=== PATIENT | male | born 1955 | race Caucasian/White ===

== ENCOUNTER → 2025-06-05 08:22 | Outpatient (CLI) | payer MEDICARE, SELFPAY ==
[2025-06-05 09:00] LABS: Add Manual Diff / Slide Review NO; Hematocrit 38.6 % (41-53); Hemoglobin 12.8 g/dL (13.5-17.5); Lymphocytes Absolute Auto 1200 /uL (1100-4500); Mean Corpuscular HGB Conc 33.3 % (30-36); Mean Corpuscular Hemoglobin 29.4 PG (26-34); Mean Corpuscular Volume 88.3 fL (80-100); Platelet Count 114 X10^3/uL (150-400)
[2025-06-05 09:24] LABS: Alanine Aminotransferase 18 IU/L (<50); Albumin 4.1 g/dL (3.5-5.0); Albumin Globulin Ratio 2.1 (1.0-2.8); Alkaline Phosphatase 68 U/L (38-126); Blood Urea Nitrogen 18 mg/dL (9-20); Calcium 9.0 mg/dL (8.4-10.2); Carbon Dioxide 31 mmol/L (22-32); Chloride 103 mmol/L (98-107); Cholesterol 212 mg/dL (140-199); Estimated Glomerular Filt Rate > 60 mL/min (>60); Globulin 2.0 g/dL (1.7-4.1); Glucose 93 mg/dL (70-99); HDL Cholesterol 44 mg/dL (40-60); HEMOLYSIS < 15 (0-50); Potassium 4.3 mmol/L (3.4-5.1); Sodium 139 mmol/L (137-145); Total Protein 6.1 g/dL (6.3-8.2); Triglycerides 153 mg/dL (35-150)
[2025-06-05 09:55] LABS: Prostate Specific Antigen 1.77 ng/mL (0.10-4.00)
== END ==
PROVIDERS: Family Provider Family Medicine; PCP Family Medicine; Referring Provider Family Medicine; Visit Provider Family Medicine
DX: E78.5 Hyperlipidemia, unspecified (principal)
CPT/HCPCS: 36415; 80053; 80061; 84153; 85025

== ENCOUNTER → 2025-07-03 07:04 | Outpatient (CLI) | payer MEDICARE, SELFPAY ==
--- NOTE | 2025-07-03 07:05 | DI.US.S_ITS ---
PROCEDURE: US ABD AORTA ANEURYSM SCREEN INDICATIONS: HISTORY OF SMOKING TECHNIQUE: Real time scanning was performed of the aorta and iliac arteries, with image documentation. COMPARISON: None. FINDINGS: Aorta: Proximal aortic diameter measures 2.6 cm. Mid-aorta measures 2.4 cm. Distal aortic diameter is 2.1 cm. Iliac arteries: Right common iliac artery measures 1.6 cm. Left common iliac artery measures 1.6 cm. IMPRESSION: Ectatic suprarenal aorta. Five year follow-up is recommended per consensus guidelines. Dictated by: Sam Garcia M.D. on 07/03/2025 at 10:57 Approved by: Sam Garcia M.D. on 07/03/2025 at 10:57
--- NOTE | 2025-07-03 07:05 | DI.MRI.S_ITS ---
PROCEDURE: MR HEAD/BRAIN WO CON INDICATIONS: aphasia, balance problems, memory changes TECHNIQUE: Non-contrast axial T1 spin echo, axial T2 fast spin echo, sagittal and axial FLAIR, coronal T2 fast spin echo, axial gradient echo, axial diffusion and ADC through the brain. COMPARISON: None. FINDINGS: Image quality: Excellent. CSF spaces: Ventricles appear symmetric in size and shape. Basal cisterns are patent. No extra-axial fluid collections. Brain: No intracranial bleeds or mass effects. There is cerebral volume loss for age. There are periventricular and deep white matter chronic small vessel ischemic changes. Brainstem appears normal. Diffusion-weighted images show no acute infarct. No chronic ischemic insults. Normal intravascular flow voids are present. In this patient with this given history, scrutiny is given to cerebellopontine angle cisterns and to the internal auditory canals. To the limits of this standard protocol study, no masses can be seen within these regions. Skull and face: Calvarial bone marrow is normal in signal. Orbits are normal. Note is made of bilateral lens replacements. Sinuses: Scattered areas of minimal to mild mucosal thickening can be seen within the paranasal sinuses. No significant abnormal mastoid air cell fluid can be seen. IMPRESSION: No imaging explanation is found for this patient's presenting symptoms. Note is made of age-appropriate brain parenchymal volume loss and chronic small vessel ischemic changes. To the limits of this noncontrast study, no findings of intracranial masses or mass effect can be seen. Dictated by: Stanley Shanks M.D. on 07/03/2025 at 10:29 Approved by: Stanley Shanks M.D. on 07/03/2025 at 10:32
== END ==
LOC: MRI 07:05
PROVIDERS: PCP Family Medicine; Referring Provider Family Medicine; Visit Provider Family Medicine
DX: R26.89 Other abnormalities of gait and mobility (principal); R41.3 Other amnesia; R47.01 Aphasia; Z87.891 Personal history of nicotine dependence; I77.811 Abdominal aortic ectasia; Z96.1 Presence of intraocular lens
CPT/HCPCS: 70551; 76706

== ENCOUNTER → 2025-09-25 11:17 | Outpatient (CLI) | payer MEDICARE, SELFPAY ==
[2025-09-25 12:18] LABS: Add Manual Diff / Slide Review NO; Hematocrit 39.0 % (41-53); Hemoglobin 13.1 g/dL (13.5-17.5); Lymphocytes Absolute Auto 1200 /uL (1100-4500); Mean Corpuscular HGB Conc 33.6 % (30-36); Mean Corpuscular Hemoglobin 29.5 PG (26-34); Mean Corpuscular Volume 87.8 fL (80-100); Platelet Count 125 X10^3/uL (150-400)
[2025-09-25 12:43] LABS: Iron 76 ug/dL (49-181)
[2025-09-25 13:24] LABS: Ferritin 28 ng/mL (18-464)
[2025-09-25 13:51] LABS: Folate > 20.0 ng/mL (2.76-20.0); Vitamin B12 697 pg/mL (239-931)
== END ==
PROVIDERS: PCP Family Medicine; Referring Provider Family Medicine; Visit Provider Family Medicine
DX: D64.9 Anemia, unspecified (principal); E78.5 Hyperlipidemia, unspecified; N40.1 Benign prostatic hyperplasia with lower urinary tract symptoms
CPT/HCPCS: 36415; 82607; 82728; 82746; 83540; 85025

== ENCOUNTER 2025-10-01 09:00 | Outpatient (RCR) | payer MEDICARE, SELFPAY ==
--- NOTE | 2025-06-05 20:41 | PT.OIE ---
Current Diagnoses Muscle spasm of back (06/05/25) Past Medical History (Last Updated 05/24/25 @ 20:37 by Naa Garcia) Anxiety Arthritis Back spasm Balance problem BPH (benign prostatic hyperplasia) Depression Expressive aphasia Hearing decreased History of tobacco abuse HLD (hyperlipidemia) Low testosterone MDD (major depressive disorder), recurrent episode Memory changes Sleep apnea Past Surgical History (Last Updated 05/24/25 @ 20:37 by Naa Garcia) Anesthesia History of Achilles tendon repair (~2015) History of carpal tunnel release History of hand surgery (~2023) History of knee replacement (~2022) History of shoulder surgery (~2018) Visit Care Team Role Provider Type Marisa Hermosillo MD Attending Provider Physician Family Provider Primary Care Provider Referring Provider Specialty: Family Practice CHIEF DEPUTY CLERK/BAILIFF Address: [address] [place] [address], [facility] Email: [email or web address] Physical Therapy Initial Evaluation PT-OP-A Visit Information Start: 06/05/25 11:34 Freq: Status: Active Protocol: Document 06/05/25 11:35 PRODUCTION COST ESTIMATOR (Rec: 06/05/25 12:45 PRODUCTION COST ESTIMATOR Laptop) Out-Patient Physical Therapy Visit Information Visit Information Visit Type Initial Evaluation Visit Start Time 11:37 Visit Stop Time 12:25 Visit Number 1 Number of DIETETIC AIDE Visits 0 Evaluation Information Evaluation Date 06/05/25 PT-OP-B Current Condition Start: 06/05/25 11:34 Freq: Status: Active Protocol: Document 06/05/25 11:35 PRODUCTION COST ESTIMATOR (Rec: 06/05/25 12:45 PRODUCTION COST ESTIMATOR Laptop) Current Condition History of Current Condition Onset Date shoulder->1 year ago, back-5-6 months Current Complaints L shoulder pain, R back pain/spasms History of Current Pt reports over a year ago he was lifting 3 gallon jugs Condition and cat was trying to get out of door at same time while he was twisting to prevent escape and tweaked his L shoulder, since then it has been painful to lift all the way over head. Pt also reports he has spasms on R side along spine from shoulder blade to where kidneys are. Pt reports he plays guitar and has been since he was a kid but has been playing a lot more since sn[facility] in 2019, R hand dominant, and feels like this may be the cause of R sided back pain. Does not feel limited in any activity but pain comes on unexpectedly and causes pain for 5-10 mins and makes it hard to sleep. Treatment Goals Patient/Caregiver To not have pain Goals PT-OP-C Subjective Start: 06/05/25 11:34 Freq: Status: Active Protocol: Document 06/05/25 11:35 PRODUCTION COST ESTIMATOR (Rec: 06/05/25 12:45 PRODUCTION COST ESTIMATOR Laptop) Patient Questionnaires Oswestry Low Back Index Oswestry Score 6/50, 12% impaired Oswestry Impairment 1 to 19% Impaired (Score 1-19) PT-OP-F Manual Assessment Start: 06/05/25 11:34 Freq: Status: Active Protocol: Document 06/05/25 11:35 PRODUCTION COST ESTIMATOR (Rec: 06/05/25 12:45 PRODUCTION COST ESTIMATOR Laptop) Manual Assessments Other Manual Assessments Other Manual decreased soft tissue mobility to B upper traps, L Assessments rhomboids, R cervical and thoracic paraspinals, B pecs PT-OP-J Posture/Palpation/Skin Start: 06/05/25 11:34 Freq: Status: Active Protocol: Document 06/05/25 11:35 PRODUCTION COST ESTIMATOR (Rec: 06/05/25 12:45 PRODUCTION COST ESTIMATOR Laptop) Posture Evaluation Comments Posture Comments Winging of B shoulders L>R, B scapular abd, B forward rounded shoulders PT-OP-K Range of Motion Start: 06/05/25 11:34 Freq: Status: Active Protocol: Document 06/05/25 11:35 PRODUCTION COST ESTIMATOR (Rec: 06/05/25 12:45 PRODUCTION COST ESTIMATOR Laptop) Cervical Spine Range of Motion Cervical Spine Active Testing Position Standing Flexion 55 Extension 40 Rotation Left 40 Rotation Right 45 Lateral Flexion Left 35 Lateral Flexion 30 Right ROM Limitations Soft Tissue Tightness Comments 2/10 pain with ext at base of neck Shoulder Goniometric Range of Motion Shoulder L Shoulder ROM WFL No Testing Position Standing Flexion 85 Extension 60 Abduction 128 External Rotation at 84 90 degrees Abduction External Rotation at 56 0 degrees Abduction Internal Rotation T4 Behind Back (text) Comments flex pain free 0-85 degrees, very painful 85-115 degrees, painful ER at 90 degrees, pain free ER at 0 degrees R Testing Position Standing Flexion 145 Extension 60 Abduction 143 External Rotation at 104 90 degrees Abduction External Rotation at 75 0 degrees Abduction Internal Rotation T10 Behind Back (text) Comments flexion pain free but feels on verge of back spasm, increased thoracic ext PT-OP-M Strength Start: 06/05/25 11:34 Freq: Status: Active Protocol: Document 06/05/25 11:35 PRODUCTION COST ESTIMATOR (Rec: 06/05/25 12:45 PRODUCTION COST ESTIMATOR Laptop) Shoulder Strength Shoulder Manual Muscle Testing L Flexion 4- Good- Extension 5 Normal Abduction (C5) 4+ Good+ Adduction 4+ Good+ External Rotation 4 Good Internal Rotation 4+ Good+ R Flexion 4+ Good+ Extension 5 Normal Abduction (C5) 4 Good Adduction 5 Normal External Rotation 5 Normal Internal Rotation 5 Normal PT-OP-Q Treatments Start: 06/05/25 11:34 Freq: Status: Active Protocol: Document 06/05/25 11:35 PRODUCTION COST ESTIMATOR (Rec: 06/05/25 12:45 PRODUCTION COST ESTIMATOR Laptop) Therapeutic Exercises Sitting Exercises Scap retract Side bilateral Reps/Minutes x10 Comments Added to HEP with HO Levator scap stretch Side bilateral Reps/Minutes 1 min each Comments Added to HEP with HO UT stretch Side bilateral Reps/Minutes 1 min each Comments Added to HEP with HO PT-OP-T Assessment and Plan Start: 06/05/25 11:34 Freq: Status: Active Protocol: Document 06/05/25 11:35 PRODUCTION COST ESTIMATOR (Rec: 06/05/25 12:45 PRODUCTION COST ESTIMATOR Laptop) Physical Therapy Assessment Rehab Potential Rehabilitation Excellent Potential Evaluation Complexity Number of Personal 1-2 Factors/ Comorbidities Number of Body 3 Systems Impaired Clinical Stable Presentation at Evaluation Impairments Impairments Functional Activities,Pain,Posture,ROM,Soft Tissue Mobility,Strength Goals 3 Impairment B shoulder strength Assisted Goal (LTG) Pt will improve B shoulder strength to at least 4+/5 in all muscle groups in order to improve function. LTG Duration 12 weeks 2 Impairment Shoulder AROM Impairment Eval: L shoulder flex 85, abd 128 R shoulder 145, abd 143 Instructional Manager Goal (LTG) Pt will improve L shoulder AROM flex and abd to at least 145 degrees without pain to improve function. LTG Duration 12 weeks 1 Impairment Cervical AROM Impairment Eval: lateral flexion L 35, R 30 Instructional Manager Goal (LTG) Pt will improve B cervical lateral flexion to 45 degrees in order to improve pain and function. LTG Duration 12 weeks Assessment Summary Assessment Pt presents with L shoulder pain and R thoracic pain, found to have impaired posture with decreased B scapular strength, decreased soft tissue mobility to B pecs, B upper traps, R cervical and thoracic paraspinals, significantly decreased B cervical lateral flexion, decreased L shoulder AROM in flexion, abduction, ER, and R IR, and decreased strength to L shoulder flexion, ER, and R abduction. Pt will highly benefit from skilled PT intervention to address impairments and improve function. Physical Therapy Plan Frequency and Duration Frequency of 1-2x/wk Treatment Duration of 12 treatment (weeks) Plan of Care Start 06/05/25 Date Plan of Care End 08/28/25 Date Therapeutic Interventions Therapeutic Home Exercise Program,Joint Mobilizations,Manual Interventions Therapy,Neuromuscular Re-education,Soft Tissue Mobilization,Taping,Therapeutic Activities,Therapeutic Exercises Modalities Cold Pack/Ice Massage,Hot Packs,Iontophoresis, Ultrasound Next Visit Focus/Plan Next Note Type Treatment Note Next Visit Plan STM to B cervical and thoracic muscles, L shoulder AROM exercises with posture training, B scapular exercises
--- NOTE | 2025-06-05 20:42 | PT.OPPOC ---
Physical, Occupational & Speech Therapy At [facility] Current Diagnoses Muscle spasm of back (06/05/25) Visit Care Team Role Provider Type Marisa Hermosillo MD Attending Provider Physician Family Provider Primary Care Provider Referring Provider Specialty: Family Practice FACETOR Address: [facility] [place], [address] Email: [email or web address] Plan Of Care PT-OP-B Current Condition Start: 06/05/25 11:34 Freq: Status: Active Protocol: Document 06/05/25 11:35 SOLAR SALES AMBASSADOR (Rec: 06/05/25 12:45 SOLAR SALES AMBASSADOR Laptop) Current Condition History of Current Condition Onset Date shoulder->1 year ago, back-5-6 months Current Complaints L shoulder pain, R back pain/spasms History of Current Pt reports over a year ago he was lifting 3 gallon jugs Condition and cat was trying to get out of door at same time while he was twisting to prevent escape and tweaked his L shoulder, since then it has been painful to lift all the way over head. Pt also reports he has spasms on R side along spine from shoulder blade to where kidneys are. Pt reports he plays guitar and has been since he was a kid but has been playing a lot more since jail in 2019, R hand dominant, and feels like this may be the cause of R sided back pain. Does not feel limited in any activity but pain comes on unexpectedly and causes pain for 5-10 mins and makes it hard to sleep. Treatment Goals Patient/Caregiver To not have pain Goals PT-OP-T Assessment and Plan Start: 06/05/25 11:34 Freq: Status: Active Protocol: Document 06/05/25 11:35 SOLAR SALES AMBASSADOR (Rec: 06/05/25 12:45 SOLAR SALES AMBASSADOR Laptop) Physical Therapy Assessment Rehab Potential Rehabilitation Excellent Potential Evaluation Complexity Number of Personal 1-2 Factors/ Comorbidities Number of Body 3 Systems Impaired Clinical Stable Presentation at Evaluation Impairments Impairments Functional Activities,Pain,Posture,ROM,Soft Tissue Mobility,Strength Goals 3 Impairment B shoulder strength Fingernail Technician Goal (LTG) Pt will improve B shoulder strength to at least 4+/5 in all muscle groups in order to improve function. LTG Duration 12 weeks 2 Impairment Shoulder AROM Impairment Eval: L shoulder flex 85, abd 128 R shoulder 145, abd 143 Fingernail Technician Goal (LTG) Pt will improve L shoulder AROM flex and abd to at least 145 degrees without pain to improve function. LTG Duration 12 weeks 1 Impairment Cervical AROM Impairment Eval: lateral flexion L 35, R 30 Fingernail Technician Goal (LTG) Pt will improve B cervical lateral flexion to 45 degrees in order to improve pain and function. LTG Duration 12 weeks Assessment Summary Assessment Pt presents with L shoulder pain and R thoracic pain, found to have impaired posture with decreased B scapular strength, decreased soft tissue mobility to B pecs, B upper traps, R cervical and thoracic paraspinals, significantly decreased B cervical lateral flexion, decreased L shoulder AROM in flexion, abduction, ER, and R IR, and decreased strength to L shoulder flexion, ER, and R abduction. Pt will highly benefit from skilled PT intervention to address impairments and improve function. Physical Therapy Plan Frequency and Duration Frequency of 1-2x/wk Treatment Duration of 12 treatment (weeks) Plan of Care Start 06/05/25 Date Plan of Care End 08/28/25 Date Therapeutic Interventions Therapeutic Home Exercise Program,Joint Mobilizations,Manual Interventions Therapy,Neuromuscular Re-education,Soft Tissue Mobilization,Taping,Therapeutic Activities,Therapeutic Exercises Modalities Cold Pack/Ice Massage,Hot Packs,Iontophoresis, Ultrasound Next Visit Focus/Plan Next Note Type Treatment Note Next Visit Plan STM to B cervical and thoracic muscles, L shoulder AROM exercises with posture training, B scapular exercises Plan of Care Dates Plan of Care Start Date 06/05/25 Plan of Care End Date 08/28/25 Electronically Signed by: Bela Lr, PT 06/06/252041 If you are in agreement with this Plan of Care, please return a signed and dated copy. I have reviewed this Plan of Care and certify that the skilled therapy services above are required to meet the patient?s needs. Physician Signature Date Printed Name and Credentials Clinical Instructor Signature Printed Name and Credentials
--- NOTE | 2025-06-22 10:41 | PT.OTN ---
Current Diagnoses Muscle spasm of back (06/22/25) Physical Therapy Treatment Note PT-OP-A Visit Information Start: 06/05/25 11:34 Freq: Status: Active Protocol: Document 06/22/25 09:56 DATA PROCESSOR (Rec: 06/22/25 10:41 DATA PROCESSOR Laptop) Out-Patient Physical Therapy Visit Information Visit Information Visit Type Treatment Note Visit Start Time 09:55 Visit Stop Time 10:35 Visit Number 2 Number of CONVERTIBLE SOFA BEDSPRING TESTER Visits 0 PT-OP-B Current Condition Start: 06/05/25 11:34 Freq: Status: Active Protocol: Document 06/05/25 11:35 DATA PROCESSOR (Rec: 06/05/25 12:45 DATA PROCESSOR Laptop) Current Condition History of Current Condition Onset Date shoulder->1 year ago, back-5-6 months Current Complaints L shoulder pain, R back pain/spasms History of Current Pt reports over a year ago he was lifting 3 gallon jugs Condition and cat was trying to get out of door at same time while he was twisting to prevent escape and tweaked his L shoulder, since then it has been painful to lift all the way over head. Pt also reports he has spasms on R side along spine from shoulder blade to where kidneys are. Pt reports he plays guitar and has been since he was a kid but has been playing a lot more since [facility] in 2019, R hand dominant, and feels like this may be the cause of R sided back pain. Does not feel limited in any activity but pain comes on unexpectedly and causes pain for 5-10 mins and makes it hard to sleep. Treatment Goals Patient/Caregiver To not have pain Goals PT-OP-C Subjective Start: 06/05/25 11:34 Freq: Status: Active Protocol: Document 06/22/25 09:56 DATA PROCESSOR (Rec: 06/22/25 10:41 DATA PROCESSOR Laptop) OP-PT Subjective Patient Comments Patient Comments Pt reports less back spasms since doing scapular retraction exercise and has been noticing and trying to correct posture more. PT-OP-F Manual Assessment Start: 06/05/25 11:34 Freq: Status: Active Protocol: Document 06/05/25 11:35 DATA PROCESSOR (Rec: 06/05/25 12:45 DATA PROCESSOR Laptop) Manual Assessments Other Manual Assessments Other Manual decreased soft tissue mobility to B upper traps, L Assessments rhomboids, R cervical and thoracic paraspinals, B pecs PT-OP-J Posture/Palpation/Skin Start: 06/05/25 11:34 Freq: Status: Active Protocol: Document 06/05/25 11:35 DATA PROCESSOR (Rec: 06/05/25 12:45 DATA PROCESSOR Laptop) Posture Evaluation Comments Posture Comments Winging of B shoulders L>R, B scapular abd, B forward rounded shoulders PT-OP-K Range of Motion Start: 06/05/25 11:34 Freq: Status: Active Protocol: Document 06/05/25 11:35 DATA PROCESSOR (Rec: 06/05/25 12:45 DATA PROCESSOR Laptop) Cervical Spine Range of Motion Cervical Spine Active Testing Position Standing Flexion 55 Extension 40 Rotation Left 40 Rotation Right 45 Lateral Flexion Left 35 Lateral Flexion 30 Right ROM Limitations Soft Tissue Tightness Comments 2/10 pain with ext at base of neck Shoulder Goniometric Range of Motion Shoulder L Shoulder ROM WFL No Testing Position Standing Flexion 85 Extension 60 Abduction 128 External Rotation at 84 90 degrees Abduction External Rotation at 56 0 degrees Abduction Internal Rotation T4 Behind Back (text) Comments flex pain free 0-85 degrees, very painful 85-115 degrees, painful ER at 90 degrees, pain free ER at 0 degrees R Testing Position Standing Flexion 145 Extension 60 Abduction 143 External Rotation at 104 90 degrees Abduction External Rotation at 75 0 degrees Abduction Internal Rotation T10 Behind Back (text) Comments flexion pain free but feels on verge of back spasm, increased thoracic ext PT-OP-M Strength Start: 06/05/25 11:34 Freq: Status: Active Protocol: Document 06/05/25 11:35 DATA PROCESSOR (Rec: 06/05/25 12:45 DATA PROCESSOR Laptop) Shoulder Strength Shoulder Manual Muscle Testing L Flexion 4- Good- Extension 5 Normal Abduction (C5) 4+ Good+ Adduction 4+ Good+ External Rotation 4 Good Internal Rotation 4+ Good+ R Flexion 4+ Good+ Extension 5 Normal Abduction (C5) 4 Good Adduction 5 Normal External Rotation 5 Normal Internal Rotation 5 Normal PT-OP-Q Treatments Start: 06/05/25 11:34 Freq: Status: Active Protocol: Document 06/22/25 09:56 DATA PROCESSOR (Rec: 06/22/25 10:41 DATA PROCESSOR Laptop) Therapeutic Exercises Supine Exercises Chin Tucks Reps/Minutes 10x2 Serratus punches Side bilateral Resistance 3# dumbbell Reps/Minutes 10x2 Comments no pain, mod TC to prevent scapular elevation Shoulder flex Supine Exercise Name AAROM with dowel Side bilateral Reps/Minutes 10x2 Comments VC to perform in pain free range, ~135 degrees L Sitting Exercises Scap depress Sitting Exercise 1. scap depress 2. Combo depress/retract Name Side bilateral Reps/Minutes 10x2 each exercise Comments VC to relax only to neutral each time Manual Therapy Treatment Consent Patient gave verbal Yes consent for manual treatment Soft Tissue Mobilization Shoulders Body Location B UT, B LS, R scapular lift/release Mobilization Type Myofascial Release,Rolling,Trigger Point Release Intensity/Depth Deep Body Position sitting, sidelying PT-OP-T Assessment and Plan Start: 06/05/25 11:34 Freq: Status: Active Protocol: Document 06/22/25 09:56 DATA PROCESSOR (Rec: 06/22/25 10:41 DATA PROCESSOR Laptop) Physical Therapy Assessment Goals 3 Impairment B shoulder strength Usp Goal (LTG) Pt will improve B shoulder strength to at least 4+/5 in all muscle groups in order to improve function. LTG Duration 12 weeks 2 Impairment Shoulder AROM Impairment Eval: L shoulder flex 85, abd 128 R shoulder 145, abd 143 Clinical Services Assistant Goal (LTG) Pt will improve L shoulder AROM flex and abd to at least 145 degrees without pain to improve function. LTG Duration 12 weeks 1 Impairment Cervical AROM Impairment Eval: lateral flexion L 35, R 30 Clinical Services Assistant Goal (LTG) Pt will improve B cervical lateral flexion to 45 degrees in order to improve pain and function. LTG Duration 12 weeks Assessment Summary Assessment Pt with significant trigger points to B upper traps and levator scaps R>L, reduced after trigger point release . Pt tolerated postural strengthening well with no increased pain during exercises, pain with L AAROM shoulder flexion >135 degrees but cued to perform in pain free range only. Physical Therapy Plan Frequency and Duration Frequency of 1-2x/wk Treatment Duration of 12 treatment (weeks) Plan of Care Start 06/05/25 Date Plan of Care End 08/28/25 Date Therapeutic Interventions Therapeutic Home Exercise Program,Joint Mobilizations,Manual Interventions Therapy,Neuromuscular Re-education,Soft Tissue Mobilization,Taping,Therapeutic Activities,Therapeutic Exercises Modalities Cold Pack/Ice Massage,Hot Packs,Iontophoresis, Ultrasound Next Visit Focus/Plan Next Note Type Treatment Note Next Visit Plan L shoulder ER/IR, scaption exercises
--- NOTE | 2025-06-26 20:05 | PT.OTN ---
Current Diagnoses Muscle spasm of back (06/26/25) Physical Therapy Treatment Note PT-OP-A Visit Information Start: 06/05/25 11:34 Freq: Status: Active Protocol: Document 06/26/25 10:48 IUSS ANALYST (Rec: 06/26/25 11:38 IUSS ANALYST Laptop) Out-Patient Physical Therapy Visit Information Visit Information Visit Type Treatment Note Visit Note PN due 07/05/25 Visit Start Time 10:50 Visit Stop Time 11:37 Visit Number 3 Number of TEA PLANTATION WORKER Visits 0 PT-OP-B Current Condition Start: 06/05/25 11:34 Freq: Status: Active Protocol: Document 06/05/25 11:35 IUSS ANALYST (Rec: 06/05/25 12:45 IUSS ANALYST Laptop) Current Condition History of Current Condition Onset Date shoulder->1 year ago, back-5-6 months Current Complaints L shoulder pain, R back pain/spasms History of Current Pt reports over a year ago he was lifting 3 gallon jugs Condition and cat was trying to get out of door at same time while he was twisting to prevent escape and tweaked his L shoulder, since then it has been painful to lift all the way over head. Pt also reports he has spasms on R side along spine from shoulder blade to where kidneys are. Pt reports he plays guitar and has been since he was a kid but has been playing a lot more since jail in 2019, R hand dominant, and feels like this may be the cause of R sided back pain. Does not feel limited in any activity but pain comes on unexpectedly and causes pain for 5-10 mins and makes it hard to sleep. Treatment Goals Patient/Caregiver To not have pain Goals PT-OP-C Subjective Start: 06/05/25 11:34 Freq: Status: Active Protocol: Document 06/26/25 10:48 IUSS ANALYST (Rec: 06/26/25 11:38 IUSS ANALYST Laptop) OP-PT Subjective Patient Comments Patient Comments Pt reports no changes since last session, wants to continue 1x/wk. Has not had any more back spasms but has been working in the yard a lot and feels extra stiff in upper back this session. No pain PT-OP-F Manual Assessment Start: 06/05/25 11:34 Freq: Status: Active Protocol: Document 06/05/25 11:35 IUSS ANALYST (Rec: 06/05/25 12:45 IUSS ANALYST Laptop) Manual Assessments Other Manual Assessments Other Manual decreased soft tissue mobility to B upper traps, L Assessments rhomboids, R cervical and thoracic paraspinals, B pecs PT-OP-J Posture/Palpation/Skin Start: 06/05/25 11:34 Freq: Status: Active Protocol: Document 06/05/25 11:35 IUSS ANALYST (Rec: 06/05/25 12:45 IUSS ANALYST Laptop) Posture Evaluation Comments Posture Comments Winging of B shoulders L>R, B scapular abd, B forward rounded shoulders PT-OP-K Range of Motion Start: 06/05/25 11:34 Freq: Status: Active Protocol: Document 06/05/25 11:35 IUSS ANALYST (Rec: 06/05/25 12:45 IUSS ANALYST Laptop) Cervical Spine Range of Motion Cervical Spine Active Testing Position Standing Flexion 55 Extension 40 Rotation Left 40 Rotation Right 45 Lateral Flexion Left 35 Lateral Flexion 30 Right ROM Limitations Soft Tissue Tightness Comments 2/10 pain with ext at base of neck Shoulder Goniometric Range of Motion Shoulder L Shoulder ROM WFL No Testing Position Standing Flexion 85 Extension 60 Abduction 128 External Rotation at 84 90 degrees Abduction External Rotation at 56 0 degrees Abduction Internal Rotation T4 Behind Back (text) Comments flex pain free 0-85 degrees, very painful 85-115 degrees, painful ER at 90 degrees, pain free ER at 0 degrees R Testing Position Standing Flexion 145 Extension 60 Abduction 143 External Rotation at 104 90 degrees Abduction External Rotation at 75 0 degrees Abduction Internal Rotation T10 Behind Back (text) Comments flexion pain free but feels on verge of back spasm, increased thoracic ext PT-OP-M Strength Start: 06/05/25 11:34 Freq: Status: Active Protocol: Document 06/05/25 11:35 IUSS ANALYST (Rec: 06/05/25 12:45 IUSS ANALYST Laptop) Shoulder Strength Shoulder Manual Muscle Testing L Flexion 4- Good- Extension 5 Normal Abduction (C5) 4+ Good+ Adduction 4+ Good+ External Rotation 4 Good Internal Rotation 4+ Good+ R Flexion 4+ Good+ Extension 5 Normal Abduction (C5) 4 Good Adduction 5 Normal External Rotation 5 Normal Internal Rotation 5 Normal PT-OP-Q Treatments Start: 06/05/25 11:34 Freq: Status: Active Protocol: Document 06/26/25 10:48 IUSS ANALYST (Rec: 06/26/25 11:38 IUSS ANALYST Laptop) Therapeutic Exercises Supine Exercises Shoulder abd Supine Exercise Name thumb up Side left Reps/Minutes 10x2 Comments full range pain free, added to HEP with HO Chin Tucks Reps/Minutes 10x2 Shoulder flex Supine Exercise Name scaption Side left Reps/Minutes 10x2 Comments full range pain free, added to HEP with HO Prone Exercises Thread the needle Side bilateral Reps/Minutes x5 5s hold each side Comments Added to HEP with HO Sidelying Exercises Open book Side bilateral Reps/Minutes x10 2-3s hold each side Comments Added to HEP with HO Sitting Exercises Shoulder scaption Side left Reps/Minutes x10 Comments improved pain from flex at 130 degrees Shoulder flex Side left Reps/Minutes x10 Comments pain after 90 degrees Cervical circles Sitting Exercise CW, CCW Name Side bilateral Reps/Minutes x5 each direction Comments after STM Manual Therapy Treatment Consent Patient gave verbal Yes consent for manual treatment Soft Tissue Mobilization Self STM Body Location trigger point cane Body Position Sitting Comments trialed and educated on use of trigger point cane, recommended buying one for use at home after heat pad Shoulders Body Location B UT, B LS Mobilization Type Rolling,Trigger Point Release Intensity/Depth Deep Body Position Sitting PT-OP-T Assessment and Plan Start: 06/05/25 11:34 Freq: Status: Active Protocol: Document 06/26/25 10:48 IUSS ANALYST (Rec: 06/26/25 11:38 IUSS ANALYST Laptop) Physical Therapy Assessment Goals 3 Impairment B shoulder strength Senior Living Goal (LTG) Pt will improve B shoulder strength to at least 4+/5 in all muscle groups in order to improve function. LTG Duration 12 weeks 2 Impairment Shoulder AROM Impairment Eval: L shoulder flex 85, abd 128 R shoulder 145, abd 143 Shoe Planner Goal (LTG) Pt will improve L shoulder AROM flex and abd to at least 145 degrees without pain to improve function. LTG Duration 12 weeks 1 Impairment Cervical AROM Impairment Eval: lateral flexion L 35, R 30 Senior Living Goal (LTG) Pt will improve B cervical lateral flexion to 45 degrees in order to improve pain and function. LTG Duration 12 weeks Assessment Summary Assessment Pt tolerated thoracic mobility exercises well and added to HEP. Pt with pain in L shoulder during seated abd and flex (range improved in scaption vs flex) but able to perform full ROM pain free in supine and added to HEP. Pt continues to have significant tightness and trigger points to B UT and LS, recommended purchasing trigger point cane to work on at home after applying heat pack for 5-10 mins. Physical Therapy Plan Frequency and Duration Frequency of 1-2x/wk Treatment Duration of 12 treatment (weeks) Plan of Care Start 06/05/25 Date Plan of Care End 08/28/25 Date Therapeutic Interventions Therapeutic Home Exercise Program,Joint Mobilizations,Manual Interventions Therapy,Neuromuscular Re-education,Soft Tissue Mobilization,Taping,Therapeutic Activities,Therapeutic Exercises Modalities Cold Pack/Ice Massage,Hot Packs,Iontophoresis, Ultrasound Next Visit Focus/Plan Next Note Type Progress Note Next Visit Plan Review HEP
--- NOTE | 2025-07-03 12:57 | PT.OPPN ---
Current Diagnoses Muscle spasm of back (07/03/25) Physical Therapy Progress Note PT OP: Cervical/Upper Extremity Start: 07/03/25 11:05 Freq: Status: Active Protocol: Document 07/03/25 11:06 TURBINE ENGINE ASSEMBLER (Rec: 07/03/25 11:40 TURBINE ENGINE ASSEMBLER Laptop) Out-Patient Physical Therapy Visit Information Visit Information Visit Type Progress Note Visit Start Time 10:50 Visit Stop Time 11:40 Visit Number 4 Number of CRUSHER AND BINDER OPERATOR Visits 0 Progress Note Due 08/02/25 OP-PT Subjective Patient Comments Patient Comments Pt reports no changes since last session, feels his neck ROM/pain has gotten a little better but still feels a little stiffness in neck today. Has not been working on HEP consistently but does work on neck stretches. Cervical Spine Range of Motion Cervical Spine Active Testing Position Standing Flexion 63 Extension 35 Rotation Left 50 Rotation Right 57 Lateral Flexion Left 40 Lateral Flexion 33 Right ROM Limitations Soft Tissue Tightness Shoulder Goniometric Range of Motion Shoulder Measured in Degrees L Shoulder ROM WFL No Testing Position Standing Flexion 125 Extension 73 Abduction 132 External Rotation at 85 90 degrees Abduction External Rotation at 74 0 degrees Abduction Internal Rotation T7 (mistake noted on eval, corrected is T7) Behind Back (text) Comments Abd pain free, ER at 90 degrees pain free, ER at 0 degrees pain free R Testing Position Standing Flexion 150 Extension 70 Abduction 144 External Rotation at 104 90 degrees Abduction External Rotation at 78 0 degrees Abduction Internal Rotation T10 Behind Back (text) Comments flexion pain free but feels on verge of back spasm, increased thoracic ext Shoulder Strength Shoulder Manual Muscle Testing L Flexion 4+ Good+ Extension 5 Normal Abduction (C5) 4+ Good+ Adduction 5 Normal External Rotation 4+ Good+ Internal Rotation 5 Normal R Flexion 4+ Good+ Extension 5 Normal Abduction (C5) 4+ Good+ Adduction 5 Normal External Rotation 5 Normal Internal Rotation 5 Normal Therapeutic Exercises Sitting Exercises Rows Sitting Exercise demonstration and VC for using row machine at gym Name Side bilateral Physical Therapy Assessment Goals 3 Impairment B shoulder strength Hospital Security Officer Goal (LTG) Pt will improve B shoulder strength to at least 4+/5 in all muscle groups in order to improve function. 07/03: MET LTG Duration 12 weeks MET 2 Impairment Shoulder AROM Impairment Eval: L shoulder flex 85, abd 128 R shoulder 145, abd 143 Long-Term Goal (LTG) Pt will improve L shoulder AROM flex and abd to at least 145 degrees without pain to improve function. 8/12: Progressing, L shoulder flex 125, L shoulder abd 132 degrees LTG Duration 12 weeks 1 Impairment Cervical AROM Impairment Eval: lateral flexion L 35, R 30 Hospital Security Officer Goal (LTG) Pt will improve B cervical lateral flexion to 45 degrees in order to improve pain and function. 07/03: Progressing, cervical lateral flex L 40, R 33 degrees LTG Duration 12 weeks Assessment Summary Assessment Pt is progressing towards all goals, meeting B shoulder strength goal and has improved with AROM in L shoulder and cervical lateral flex but is still lacking full degrees to meet goals. Continue skilled PT to progress towards meeting all goals. Physical Therapy Plan Frequency and Duration Frequency of 1-2x/wk Treatment Duration of 12 treatment (weeks) Plan of Care Start 06/05/25 Date Plan of Care End 08/28/25 Date Next Visit Focus/Plan Next Note Type Treatment Note Next Visit Plan Review and progress HEP, practice rows at [employer] machine,
--- NOTE | 2025-07-17 12:54 | PT.OTN ---
Current Diagnoses Muscle spasm of back (07/17/25) Physical Therapy Treatment Note PT OP: Cervical/Upper Extremity Start: 07/03/25 11:05 Freq: Status: Active Protocol: Document 07/17/25 10:43 GRINDING SUPERVISOR (Rec: 07/17/25 11:37 GRINDING SUPERVISOR Laptop) Out-Patient Physical Therapy Visit Information Visit Information Visit Type Treatment Note Visit Start Time 10:50 Visit Stop Time 11:37 Visit Number 5 Number of RADIO PRESENTER Visits 0 Progress Note Due 08/02/25 OP-PT Subjective Patient Comments Patient Comments Pt reports he feels like shoulders and neck have been getting a little less painful and easier to move but still feels tightness in B shoulders especially L side. Bought a trigger point cane and has been using daily per PT recommendation Therapeutic Exercises Supine Exercises Serratus punches Side left Resistance 2# dumbbell Reps/Minutes 10x2 Comments no pain, mod TC to prevent scapular elevation Sidelying Exercises Scap depress/retract Sidelying Exercise beginning with LUE shoulder flex, reducing to just Name scapula Side left Reps/Minutes 10x2 Comments mod TC to maintain scap position Sitting Exercises Levator scap stretch Side bilateral Reps/Minutes 1 min each UT stretch Side bilateral Reps/Minutes 1 min each Manual Therapy Treatment Consent Patient gave verbal Yes consent for manual treatment Soft Tissue Mobilization Arm Body Location L mid and post delt Mobilization Type Rolling Intensity/Depth Moderate Body Position Sidelying Comments increased pain and tightness during shoulder flex Sub occip Body Location B suboccipitals Mobilization Type Cross-Friction,Trigger Point Release Intensity/Depth Deep Body Position Supine Shoulders Body Location B UT, B LS Mobilization Type Rolling,Trigger Point Release Intensity/Depth Deep Body Position Sitting Comments L side>R with active stretching Physical Therapy Assessment Goals 3 Impairment B shoulder strength Halfway Goal (LTG) Pt will improve B shoulder strength to at least 4+/5 in all muscle groups in order to improve function. 07/03: MET LTG Duration 12 weeks MET 2 Impairment Shoulder AROM Impairment Eval: L shoulder flex 85, abd 128 R shoulder 145, abd 143 Halfway Goal (LTG) Pt will improve L shoulder AROM flex and abd to at least 145 degrees without pain to improve function. 07/03: Progressing, L shoulder flex 125, L shoulder abd 132 degrees LTG Duration 12 weeks 1 Impairment Cervical AROM Impairment Eval: lateral flexion L 35, R 30 Halfway Goal (LTG) Pt will improve B cervical lateral flexion to 45 degrees in order to improve pain and function. 07/03: Progressing, cervical lateral flex L 40, R 33 degrees LTG Duration 12 weeks Assessment Summary Assessment Improved B UT and LS but still with L soft tissue limitations greater on L vs R especially at occiput. Decreased control of L scapula during shoulder active flexion this session, worked on coordination and strengthening alone without UE lifting. Physical Therapy Plan Frequency and Duration Frequency of 1-2x/wk Treatment Duration of 12 treatment (weeks) Plan of Care Start 06/05/25 Date Plan of Care End 08/28/25 Date Next Visit Focus/Plan Next Note Type Treatment Note Next Visit Plan practice rows at row machine, B scapular strengthening
--- NOTE | 2025-07-27 10:55 | PT-OP ANOTE ---
1055- Pt called and left a voicemail notifying him of 2 no show policy with need for new doctor's referral after 2nd and advised him to call to make more appointments as he only has one more scheduled after today.
--- NOTE | 2025-07-27 14:07 | PT.OTN ---
Addendum entered and electronically signed by Alexandria Gaspar 07/27/25 17:17: Next note is PN Original Note: Current Diagnoses Muscle spasm of back (07/27/25) Physical Therapy Treatment Note PT OP: Cervical/Upper Extremity Start: 07/03/25 11:05 Freq: Status: Active Protocol: Document 07/27/25 13:03 AB (Rec: 07/27/25 14:05 AB [id number]) Out-Patient Physical Therapy Visit Information Visit Information Visit Type Treatment Note Visit Start Time 13:04 Visit Stop Time 13:56 Visit Number 6 Number of VISUAL BASIC .NET DEVELOPER Visits 1 Progress Note Due 08/02/25 OP-PT Subjective Patient Comments Patient Comments Patient reports he is incrementally better. Patient reports he is using weights with his . AROM L shoulder flexion start of session 120 deg. Therapeutic Exercises Supine Exercises mini band Supine Exercise Name single thickiness band HEP Resistance level one band Reps/Minutes X 10 Comments Verbal cues monitored for pain CS AROM Reps/Minutes 2-3 min Comments verbal cues to perform slowly in pain free range Serratus punches Supine Exercise Name HEP Side left Resistance 2# dumbbell Reps/Minutes X 15 Comments no pain, mod TC to prevent scapular elevation Sidelying Exercises Open book Side bilateral Reps/Minutes X 10 Comments Verbal cues to hold for 3 breaths Manual Therapy Treatment Soft Tissue Mobilization Shoulders Body Location B UT, B LS, pec, scalenes at lateral clavicle Mobilization Type Cross-Friction,Rolling Intensity/Depth Deep Body Position Hooklying Comments and seated Joint Mobilizations L GH Joint AP Direction IV Reps/Duration X 10 X 3 scapular mobilization Joint Bilateral Direction into dep and add Grade IV Body Position Sidelying Reps/Duration X 10 each direction each shoulder Physical Therapy Assessment Goals 3 Impairment B shoulder strength Prison Goal (LTG) Pt will improve B shoulder strength to at least 4+/5 in all muscle groups in order to improve function. 07/03: MET LTG Duration 12 weeks MET 2 Impairment Shoulder AROM Impairment Eval: L shoulder flex 85, abd 128 R shoulder 145, abd 143 Dot Compliance Specialist Goal (LTG) Pt will improve L shoulder AROM flex and abd to at least 145 degrees without pain to improve function. 07/03: Progressing, L shoulder flex 125, L shoulder abd 132 degrees LTG Duration 12 weeks 1 Impairment Cervical AROM Impairment Eval: lateral flexion L 35, R 30 Dot Compliance Specialist Goal (LTG) Pt will improve B cervical lateral flexion to 45 degrees in order to improve pain and function. 07/03: Progressing, cervical lateral flex L 40, R 33 degrees LTG Duration 12 weeks Assessment Summary Assessment AROM L shoulder flexion 141 deg end of session with patient reporting feeling fine end of session. Without use of band patient reports pain lowering L UE. Physical Therapy Plan Frequency and Duration Frequency of 1-2x/wk Treatment Duration of 12 treatment (weeks) Plan of Care Start 06/05/25 Date Plan of Care End 08/28/25 Date Next Visit Focus/Plan Next Note Type Treatment Note Next Visit Plan practice rows at row machine, B scapular strengthening deep neck flexor isometric, mini band reclined possibly , wall slide with lift off and lower without UE use
--- NOTE | 2025-08-03 12:32 | PT.OTN ---
Current Diagnoses Muscle spasm of back (08/03/25) Physical Therapy Treatment Note PT OP: Cervical/Upper Extremity Start: 07/03/25 11:05 Freq: Status: Active Protocol: Document 08/03/25 10:40 AB (Rec: 08/03/25 11:45 AB [id number]) Out-Patient Physical Therapy Visit Information Visit Information Visit Type Treatment Note Visit Start Time 10:46 Visit Stop Time 11:34 Visit Number 7 Number of AIR DISPATCHER Visits 2 Progress Note Due 08/02/25 OP-PT Subjective Patient Comments Patient Comments Patient reports he is way better, reports the cramping under the shoulder blade is less, but still there. Jeronimo rates pain less than 1/10 under R shoulder blade. Cervical Spine Range of Motion Cervical Spine Active Testing Position Sitting Lateral Flexion Left 43 Lateral Flexion 40 Right ROM Limitations Soft Tissue Tightness Shoulder Goniometric Range of Motion Shoulder L Shoulder ROM WFL No Testing Position Standing Flexion 125 Abduction 132 Comments moves into scaption with abduction Therapeutic Exercises Supine Exercises mini band Supine Exercise Name single thickiness band HEP Resistance level one band Reps/Minutes X 10 Comments Verbal cues monitored for pain Shoulder abd Supine Exercise Name thumb up and flexion Side left Reps/Minutes abd X 3 and X 2 flex X 4 Comments full range pain free, added to HEP with HO Sidelying Exercises sidelying abduction Sidelying Exercise AROM Name Reps/Minutes X 2 pre pec stretch X 5 Comments verbal cues, dec damaris pre pec stretch Sitting Exercises pec stretch Side left Reps/Minutes 60 sec X 2 Comments verbal cues L stretch Side bilateral Reps/Minutes X 5 for 5-10 sec Comments verbal anad visual cues Standing Exercises wall slide shoulder abduction Reps/Minutes X 3 Comments Not damaris single arm row Standing Exercise HEP Name Side bilateral Reps/Minutes X 15 with level 2 band Comments verbal and visual cues Physical Therapy Assessment Goals 3 Impairment B shoulder strength Wellness Guide Goal (LTG) Pt will improve B shoulder strength to at least 4+/5 in all muscle groups in order to improve function. 07/03: MET LTG Duration 12 weeks MET 2 Impairment Shoulder AROM Impairment Eval: L shoulder flex 85, abd 128 R shoulder 145, abd 143 Wellness Guide Goal (LTG) Pt will improve L shoulder AROM flex and abd to at least 145 degrees without pain to improve function. 07/03: Progressing, L shoulder flex 125, L shoulder abd 132 degrees 08/03/2025 no change in AROM L shoulder LTG Duration 12 weeks 1 Impairment Cervical AROM Impairment Eval: lateral flexion L 35, R 30 [facility] Goal (LTG) Pt will improve B cervical lateral flexion to 45 degrees in order to improve pain and function. 07/03: Progressing, cervical lateral flex L 40, R 33 degrees 08/03/2025 L 43 L 40 improved but goal not yet met LTG Duration 12 weeks Assessment Summary Assessment Decreased damaris to shoulder abduction exercises. AROM L shoulder flexion 137 deg end of session, likely due to fatigue. Patient is progression toward goal for CS lateral flexion, but not yet met. AROM L shoulder flexion and abd measured start of session with no change since previous PN. Physical Therapy Plan Frequency and Duration Frequency of 1-2x/wk Treatment Duration of 12 treatment (weeks) Plan of Care Start 06/05/25 Date Plan of Care End 08/28/25 Date Next Visit Focus/Plan Next Note Type Treatment Note Next Visit Plan practice rows at row machine, B scapular strengthening deep neck flexor isometric, mini band reclined possibly , wall slide with lift off and lower without UE use, revisit hooklying sh abd and wall slide sh abduction, review pec stretch
--- NOTE | 2025-08-03 18:31 | PT.OPPN ---
Current Diagnoses Muscle spasm of back (08/03/25) Physical Therapy Progress Note PT OP: Cervical/Upper Extremity Start: 07/03/25 11:05 Freq: Status: Active Protocol: Document 08/03/25 18:27 CORN SHELLER (Rec: 08/03/25 18:31 CORN SHELLER Laptop) Out-Patient Physical Therapy Visit Information Visit Information Visit Type Progress Note Progress Note Due 09/02/25 Physical Therapy Assessment Goals 3 Impairment B shoulder strength Halfway Goal (LTG) Pt will improve B shoulder strength to at least 4+/5 in all muscle groups in order to improve function. 07/03: MET LTG Duration 12 weeks MET 2 Impairment Shoulder AROM Impairment Eval: L shoulder flex 85, abd 128 R shoulder 145, abd 143 Halfway Goal (LTG) Pt will improve L shoulder AROM flex and abd to at least 145 degrees without pain to improve function. 07/03: Progressing, L shoulder flex 125, L shoulder abd 132 degrees 08/03/2025 no change in AROM L shoulder LTG Duration 12 weeks 1 Impairment Cervical AROM Impairment Eval: lateral flexion L 35, R 30 Halfway Goal (LTG) Pt will improve B cervical lateral flexion to 45 degrees in order to improve pain and function. 07/03: Progressing, cervical lateral flex L 40, R 33 degrees 08/03/2025 L 43 L 40 improved but goal not yet met LTG Duration 12 weeks Assessment Summary Assessment Pt demonstrates improvement towards cervical lateral flex but not yet met and has made minimal progress towards L shoulder active flexion. Pt will benefit from continued PT to progress towards goals. Physical Therapy Plan Frequency and Duration Frequency of 1-2x/wk Treatment Duration of 12 treatment (weeks) Plan of Care Start 06/05/25 Date Plan of Care End 08/28/25 Date
--- NOTE | 2025-08-23 10:41 | PT.OTN ---
Current Diagnoses Muscle spasm of back (08/23/25) Physical Therapy Treatment Note PT OP: Cervical/Upper Extremity Start: 07/03/25 11:05 Freq: Status: Active Protocol: Document 08/23/25 09:53 JZ (Rec: 08/23/25 10:40 JZ [id number]) Out-Patient Physical Therapy Visit Information Visit Information Visit Type Treatment Note Visit Start Time 09:48 Visit Stop Time 10:30 Visit Number 8 Number of CALCULATING MACHINE MECHANIC Visits 0 Progress Note Due 09/02/25 OP-PT Subjective Patient Comments Patient Comments Patient reports he is doing his home exercises. He notes his shoulder has made some improvement since starting therapy. He reports he is able to do every thing he wants to do but is unable to lift his arm above his head. He notes he had an MRI but does not know the specific results, but he believes it was a tendon tear. He reports his back pain is his primary complaint at this point. Therapeutic Exercises Prone Exercises Cat cow Reps/Minutes x15 Thread the needle Reps/Minutes 2x15 each side Sitting Exercises Seated hip hinge Resistance 20# Reps/Minutes 3x10 Comments cues for neutral spine Standing Exercises Cable column rotations Side bilateral Resistance 10# Reps/Minutes 2x10 each direction Comments Cues for setup and spine rotation Standing hip hinge Reps/Minutes 3x10 Comments cues for neutral spine and posterior hip translation Physical Therapy Assessment Goals 3 Impairment B shoulder strength Care Home Goal (LTG) Pt will improve B shoulder strength to at least 4+/5 in all muscle groups in order to improve function. 07/03: MET LTG Duration 12 weeks MET 2 Impairment Shoulder AROM Impairment Eval: L shoulder flex 85, abd 128 R shoulder 145, abd 143 Talent Recruiter Goal (LTG) Pt will improve L shoulder AROM flex and abd to at least 145 degrees without pain to improve function. 07/03: Progressing, L shoulder flex 125, L shoulder abd 132 degrees 08/03/2025 no change in AROM L shoulder LTG Duration 12 weeks 1 Impairment Cervical AROM Impairment Eval: lateral flexion L 35, R 30 Talent Recruiter Goal (LTG) Pt will improve B cervical lateral flexion to 45 degrees in order to improve pain and function. 07/03: Progressing, cervical lateral flex L 40, R 33 degrees 08/03/2025 L 43 L 40 improved but goal not yet met LTG Duration 12 weeks Assessment Summary Assessment Treatment focused on thoracic mobility and strengthening. Patient tolerated treatment well with no increases in pain levels. Plan next session to follow up on response to today's session and continue with plan of care. Physical Therapy Plan Frequency and Duration Frequency of 1-2x/wk Treatment Duration of 12 treatment (weeks) Plan of Care Start 06/05/25 Date Plan of Care End 08/28/25 Date Next Visit Focus/Plan Next Note Type Treatment Note Next Visit Plan practice rows at row machine, B scapular strengthening deep neck flexor isometric, mini band reclined possibly , wall slide with lift off and lower without UE use, revisit hooklying sh abd and wall slide sh abduction, review pec stretch
--- NOTE | 2025-08-28 10:36 | PT.OTN ---
Current Diagnoses Muscle spasm of back (08/28/25) Physical Therapy Treatment Note PT OP: Cervical/Upper Extremity Start: 07/03/25 11:05 Freq: Status: Active Protocol: Document 08/28/25 09:06 AB (Rec: 08/28/25 09:49 AB [id number]) Out-Patient Physical Therapy Visit Information Visit Information Visit Type Treatment Note Visit Start Time 09:07 Visit Stop Time 09:49 Visit Number 9 Number of POLEYARD SUPERVISOR Visits 1 Progress Note Due 09/02/25 OP-PT Subjective Patient Comments Patient Comments AROM seated trunk rotation very minimal mvt L and right start of session. Therapeutic Exercises Prone Exercises Cat cow Reps/Minutes x10 Comments post manual Thread the needle Reps/Minutes x15 each side Comments post manual Sidelying Exercises Open book Side bilateral Reps/Minutes X 5 X 2 each side Comments Verbal cues to hold for 3 breaths Sitting Exercises Rows Sitting Exercise single arm row Name Side bilateral Reps/Minutes X 15 Comments Pt ed rational single arm to dec force thoracic sone Standing Exercises single arm row Standing Exercise HEP Name Side bilateral Reps/Minutes X 15 with level 4 band Comments Pat ed importance of single UE only Manual Therapy Treatment Soft Tissue Mobilization thoracic paraspinals Mobilization Type Cross-Friction,Sustained Pressure Intensity/Depth Moderate Body Position Sidelying Joint Mobilizations scapular mobilization Joint Bilateral Direction into dep and add Grade IV Body Position Sidelying Reps/Duration X 10 each direction each shoulder Self-Care/Home Management Treatment Education Other Education Patient ed to discontinue bilateral scap squeeze Physical Therapy Assessment Goals 3 Impairment B shoulder strength Fdc Goal (LTG) Pt will improve B shoulder strength to at least 4+/5 in all muscle groups in order to improve function. 07/03: MET LTG Duration 12 weeks MET 2 Impairment Shoulder AROM Impairment Eval: L shoulder flex 85, abd 128 R shoulder 145, abd 143 Textile Examiner Goal (LTG) Pt will improve L shoulder AROM flex and abd to at least 145 degrees without pain to improve function. 07/03: Progressing, L shoulder flex 125, L shoulder abd 132 degrees 08/03/2025 no change in AROM L shoulder LTG Duration 12 weeks 1 Impairment Cervical AROM Impairment Eval: lateral flexion L 35, R 30 Textile Examiner Goal (LTG) Pt will improve B cervical lateral flexion to 45 degrees in order to improve pain and function. 07/03: Progressing, cervical lateral flex L 40, R 33 degrees 08/03/2025 L 43 L 40 improved but goal not yet met LTG Duration 12 weeks Assessment Summary Assessment AROM seated trunk rotation with visible inc end of session, not yet WNL with patient reports continued sensation of stiffness. Physical Therapy Plan Frequency and Duration Frequency of 1-2x/wk Treatment Duration of 12 treatment (weeks) Plan of Care Start 06/05/25 Date Plan of Care End 08/28/25 Date Next Visit Focus/Plan Next Note Type Progress Note Next Visit Plan practice rows at row machine, B scapular strengthening deep neck flexor isometric, mini band reclined possibly , wall slide with lift off and lower without UE use, revisit hooklying sh abd and wall slide sh abduction, review pec stretch
--- NOTE | 2025-08-28 10:45 | PT.OTN ---
Current Diagnoses Muscle spasm of back (08/28/25) Physical Therapy Treatment Note PT OP: Cervical/Upper Extremity Start: 07/03/25 11:05 Freq: Status: Active Protocol: Document 08/28/25 09:06 AB (Rec: 08/28/25 09:49 AB [id number]) Out-Patient Physical Therapy Visit Information Visit Information Visit Type Treatment Note Visit Start Time 09:07 Visit Stop Time 09:49 Visit Number 9 Number of UPSETTER Visits 1 Progress Note Due 09/02/25 OP-PT Subjective Patient Comments Patient Comments AROM seated trunk rotation very minimal mvt L and right start of session. Therapeutic Exercises Prone Exercises Cat cow Reps/Minutes x10 Comments post manual Thread the needle Reps/Minutes x15 each side Comments post manual Sidelying Exercises Open book Side bilateral Reps/Minutes X 5 X 2 each side Comments Verbal cues to hold for 3 breaths Sitting Exercises Rows Sitting Exercise single arm row Name Side bilateral Reps/Minutes X 15 Comments Pt ed rational single arm to dec force thoracic sone Standing Exercises single arm row Standing Exercise HEP Name Side bilateral Reps/Minutes X 15 with level 4 band Comments Pat ed importance of single UE only Manual Therapy Treatment Soft Tissue Mobilization thoracic paraspinals Mobilization Type Cross-Friction,Sustained Pressure Intensity/Depth Moderate Body Position Sidelying Joint Mobilizations scapular mobilization Joint Bilateral Direction into dep and add Grade IV Body Position Sidelying Reps/Duration X 10 each direction each shoulder Self-Care/Home Management Treatment Education Other Education Patient ed to discontinue bilateral scap squeeze Physical Therapy Assessment Goals 3 Impairment B shoulder strength Half-Way Goal (LTG) Pt will improve B shoulder strength to at least 4+/5 in all muscle groups in order to improve function. 07/03: MET LTG Duration 12 weeks MET 2 Impairment Shoulder AROM Impairment Eval: L shoulder flex 85, abd 128 R shoulder 145, abd 143 It Help Desk Associate Goal (LTG) Pt will improve L shoulder AROM flex and abd to at least 145 degrees without pain to improve function. 07/03: Progressing, L shoulder flex 125, L shoulder abd 132 degrees 08/03/2025 no change in AROM L shoulder LTG Duration 12 weeks 1 Impairment Cervical AROM Impairment Eval: lateral flexion L 35, R 30 It Help Desk Associate Goal (LTG) Pt will improve B cervical lateral flexion to 45 degrees in order to improve pain and function. 07/03: Progressing, cervical lateral flex L 40, R 33 degrees 08/03/2025 L 43 L 40 improved but goal not yet met LTG Duration 12 weeks Assessment Summary Assessment AROM seated trunk rotation with visible inc end of session, not yet WNL with patient reports continued sensation of stiffness. Physical Therapy Plan Frequency and Duration Frequency of 1-2x/wk Treatment Duration of 12 treatment (weeks) Plan of Care Start 06/05/25 Date Plan of Care End 08/28/25 Date Next Visit Focus/Plan Next Note Type Progress Note Next Visit Plan practice rows at row machine, B scapular strengthening deep neck flexor isometric, mini band reclined possibly , wall slide with lift off and lower without UE use, revisit hooklying sh abd and wall slide sh abduction, review pec stretch
--- NOTE | 2025-08-28 15:11 | PT.OPPOC ---
Physical, Occupational & Speech Therapy At [facility] Current Diagnoses Muscle spasm of back (08/28/25) Visit Care Team Role Provider Type Marisa Hermosillo MD Attending Provider Physician Family Provider Primary Care Provider Referring Provider Specialty: Family Practice COST AND RISK ANALYSIS MANAGER Address: [facility] [place], [address] Email: [email or web address] Plan Of Care PT OP: Cervical/Upper Extremity Start: 07/03/25 11:05 Freq: Status: Active Protocol: Document 08/28/25 14:46 JZ (Rec: 08/28/25 15:11 JEROME [id number]) Out-Patient Physical Therapy Visit Information Visit Information Visit Type Progress Note Visit Start Time 09:07 Visit Stop Time 09:49 Visit Number 9 Progress Note Due 09/02/25 Physical Therapy Assessment Goals 5 Impairment Pain intensity Short Term Goal (STG Patient will report a 20% improvement in pain intensity ) in his thoracic region. STG Duration 3 weeks Jail Goal (LTG) Patient will report a 20% improvement in pain intensity in his thoracic region. LTG Duration 6 weeks 4 Impairment General function Short Term Goal (STG Patient will report a GROC of 25% for his presentation ) concerning his thoracic pain. STG Duration 3 weeks Eyelet Operator Goal (LTG) Patient will report a GROC of 50% for his presentation concerning his thoracic pain. LTG Duration 6 weeks 3 Impairment B shoulder strength Eyelet Operator Goal (LTG) Pt will improve B shoulder strength to at least 4+/5 in all muscle groups in order to improve function. 07/03: MET LTG Duration 12 weeks MET 2 Impairment Shoulder AROM Impairment Eval: L shoulder flex 85, abd 128 R shoulder 145, abd 143 Jail Goal (LTG) Pt will improve L shoulder AROM flex and abd to at least 145 degrees without pain to improve function. 07/03: Progressing, L shoulder flex 125, L shoulder abd 132 degrees 08/03/2025 no change in AROM L shoulder LTG Duration 12 weeks 1 Impairment Cervical AROM Impairment Eval: lateral flexion L 35, R 30 Jail Goal (LTG) Pt will improve B cervical lateral flexion to 45 degrees in order to improve pain and function. 07/03: Progressing, cervical lateral flex L 40, R 33 degrees 08/03/2025 L 43 L 40 improved but goal not yet met LTG Duration 12 weeks Assessment Summary Assessment Patient presenting to PT after 8 PT visits for L shoulder and thoracic pain. Patient has made improvement with L shoulder symptoms and function (see goal section) and is comfortable continuing self- management of this independently. His thoracic pain however, continues to limit him functionally and he will continue to benefit from PT to address this issue. Plan to transition focus of PT to this issue for 3-6 more weeks then discharge with HEP. Physical Therapy Plan Frequency and Duration Frequency of 1-2x/wk Treatment Duration of 12 treatment (weeks) Plan of Care Start 06/05/25 Date Plan of Care End 11/26/25 Date Next Visit Focus/Plan Next Note Type Treatment Note Next Visit Plan Continue focus on thoracic spine pain, working on AROM with thoracic rotation, flexion, and extension and strengthening with gross movement patterns. Plan of Care Dates Plan of Care Start Date 06/05/25 Plan of Care End Date 11/26/25 Electronically Signed by: Cande Álvarez, PT 08/28/25 1599 If you are in agreement with this Plan of Care, please return a signed and dated copy. I have reviewed this Plan of Care and certify that the skilled therapy services above are required to meet the patient?s needs. Physician Signature Date Printed Name and Credentials Clinical Instructor Signature Printed Name and Credentials
--- NOTE | 2025-09-05 12:05 | PT.OTN ---
Current Diagnoses Muscle spasm of back (09/05/25) Physical Therapy Treatment Note PT OP: Cervical/Upper Extremity Start: 07/03/25 11:05 Freq: Status: Active Protocol: Document 09/05/25 10:53 JElzbieta (Rec: 09/05/25 12:02 JEROME [id number]) Out-Patient Physical Therapy Visit Information Visit Information Visit Type Treatment Note Visit Start Time 10:52 Visit Stop Time 11:30 Visit Number 10 Progress Note Due 10/02/25 OP-PT Subjective Patient Comments Patient Comments Patient reports he has been doing his home exercises and he started chair yoga. He thinks he symptoms are starting to improve a little. Therapeutic Exercises Prone Exercises Cat cow Reps/Minutes x20 Thread the needle Reps/Minutes x20 each side Sitting Exercises Seated spine rotation Side bilateral Reps/Minutes 3x10 each side Seated hip hinge Resistance 20# Reps/Minutes 4x10 Comments cues for neutral spine Standing Exercises Cable column rotations Side bilateral Resistance green band (level 5) Reps/Minutes 2x10 each direction Comments Cues for setup and spine rotation Standing hip hinge Resistance 30# Reps/Minutes 3x10 Physical Therapy Assessment Goals 5 Impairment Pain intensity Short Term Goal (STG Patient will report a 20% improvement in pain intensity ) in his thoracic region. STG Duration 3 weeks Tester Sound Goal (LTG) Patient will report a 20% improvement in pain intensity in his thoracic region. LTG Duration 6 weeks 4 Impairment General function Short Term Goal (STG Patient will report a GROC of 25% for his presentation ) concerning his thoracic pain. STG Duration 3 weeks Tester Sound Goal (LTG) Patient will report a GROC of 50% for his presentation concerning his thoracic pain. LTG Duration 6 weeks 3 Impairment B shoulder strength Retirement Goal (LTG) Pt will improve B shoulder strength to at least 4+/5 in all muscle groups in order to improve function. 07/03: MET LTG Duration 12 weeks MET 2 Impairment Shoulder AROM Impairment Eval: L shoulder flex 85, abd 128 R shoulder 145, abd 143 Tester Sound Goal (LTG) Pt will improve L shoulder AROM flex and abd to at least 145 degrees without pain to improve function. 07/03: Progressing, L shoulder flex 125, L shoulder abd 132 degrees 08/03/2025 no change in AROM L shoulder LTG Duration 12 weeks 1 Impairment Cervical AROM Impairment Eval: lateral flexion L 35, R 30 Tester Sound Goal (LTG) Pt will improve B cervical lateral flexion to 45 degrees in order to improve pain and function. 07/03: Progressing, cervical lateral flex L 40, R 33 degrees 08/03/2025 L 43 L 40 improved but goal not yet met LTG Duration 12 weeks Assessment Summary Assessment Treatment focused on lumbar mobility and strengthening, particularly with rotation. Patient tolerated treatment well with no increases in pain levels and reports of reduced tightness post-treatment. Plan next session to continue with plan of care and follow up on home program. Physical Therapy Plan Frequency and Duration Frequency of 1-2x/wk Treatment Duration of 12 treatment (weeks) Plan of Care Start 06/05/25 Date Plan of Care End 11/26/25 Date Next Visit Focus/Plan Next Note Type Treatment Note Next Visit Plan Continue focus on thoracic spine pain, working on AROM with thoracic rotation, flexion, and extension and strengthening with gross movement patterns.
--- NOTE | 2025-09-11 10:43 | PT.OTN ---
Current Diagnoses Muscle spasm of back (09/11/25) Physical Therapy Treatment Note PT OP: Cervical/Upper Extremity Start: 07/03/25 11:05 Freq: Status: Active Protocol: Document 09/11/25 08:18 AB (Rec: 09/11/25 09:03 AB [id number]) Out-Patient Physical Therapy Visit Information Visit Information Visit Type Treatment Note Visit Note [email or web address]: [email or web address] Visit Start Time 08:21 Visit Stop Time 09:03 Visit Number 11 Number of SCHOOL CAFETERIA COOK HEAD Visits 1 Progress Note Due 10/02/25 OP-PT Subjective Patient Comments Patient Comments Patient reports he is better, cat cow is helping a lot. Back still tightens up and neck is still stiff. Therapeutic Exercises Supine Exercises Serratus punches Supine Exercise Name HEP Side left Resistance 2# dumbbell Reps/Minutes 10 without weight X 1X 15 Comments post manual, Sidelying Exercises Open book Reps/Minutes X 8 Comments tactile cues at LE's for positioning Sitting Exercises seate trunk rotation Side bilateral Reps/Minutes X 8 Comments verbal cues to perform in pain free range Standing Exercises counter plank exercises Standing Exercise 1. counter plank cat cow 2. thread the needle Name Reps/Minutes X 10 each bilaterally Comments Verbal cues for resting on fore arms for counter plank and full ROM thread Manual Therapy Treatment Consent Patient gave verbal Yes consent for manual treatment Soft Tissue Mobilization thoracic paraspinals Mobilization Type Cross-Friction,Sustained Pressure Intensity/Depth Moderate Body Position Sidelying Joint Mobilizations scapular mobilization Joint Bilateral Direction into dep and add Grade IV Body Position Sidelying Reps/Duration X 10 each direction each shoulder Physical Therapy Assessment Goals 5 Impairment Pain intensity Short Term Goal (STG Patient will report a 20% improvement in pain intensity ) in his thoracic region. STG Duration 3 weeks Pediatric Physical Therapist Goal (LTG) Patient will report a 20% improvement in pain intensity in his thoracic region. LTG Duration 6 weeks 4 Impairment General function Short Term Goal (STG Patient will report a GROC of 25% for his presentation ) concerning his thoracic pain. STG Duration 3 weeks Pediatric Physical Therapist Goal (LTG) Patient will report a GROC of 50% for his presentation concerning his thoracic pain. LTG Duration 6 weeks 3 Impairment B shoulder strength Pediatric Physical Therapist Goal (LTG) Pt will improve B shoulder strength to at least 4+/5 in all muscle groups in order to improve function. 07/03: MET LTG Duration 12 weeks MET 2 Impairment Shoulder AROM Impairment Eval: L shoulder flex 85, abd 128 R shoulder 145, abd 143 Jail Goal (LTG) Pt will improve L shoulder AROM flex and abd to at least 145 degrees without pain to improve function. 07/03: Progressing, L shoulder flex 125, L shoulder abd 132 degrees 08/03/2025 no change in AROM L shoulder LTG Duration 12 weeks 1 Impairment Cervical AROM Impairment Eval: lateral flexion L 35, R 30 Pediatric Physical Therapist Goal (LTG) Pt will improve B cervical lateral flexion to 45 degrees in order to improve pain and function. 07/03: Progressing, cervical lateral flex L 40, R 33 degrees 08/03/2025 L 43 L 40 improved but goal not yet met LTG Duration 12 weeks Assessment Summary Assessment Visible increase with AROM seated trunk rotation L and right end of session, not yet WNL and patient reports feeling looser, but tight end AROM. Physical Therapy Plan Frequency and Duration Frequency of 1-2x/wk Treatment Duration of 12 treatment (weeks) Plan of Care Start 06/05/25 Date Plan of Care End 11/26/25 Date Next Visit Focus/Plan Next Note Type Treatment Note Next Visit Plan Continue focus on thoracic spine pain, working on AROM with thoracic rotation, flexion, and extension and strengthening with gross movement patterns.
--- NOTE | 2025-09-21 10:47 | PT.OTN ---
Current Diagnoses Muscle spasm of back (09/21/25) Physical Therapy Treatment Note PT OP: Cervical/Upper Extremity Start: 07/03/25 11:05 Freq: Status: Active Protocol: Document 09/21/25 09:02 AB (Rec: 09/21/25 09:57 AB [id number]) Out-Patient Physical Therapy Visit Information Visit Information Visit Type Treatment Note Visit Note [email or web address] Access Code: [email or web address] Visit Start Time 09:04 Visit Stop Time 09:52 Visit Number 12 Number of WELT TREATER Visits 2 Progress Note Due 10/02/25 OP-PT Subjective Patient Comments Patient Comments Patient reports he is better, but stiffness continues to be a problem. Patient rates thoracic pain is 1/10 start of session, but at night has increased stiffness. Therapeutic Exercises Supine Exercises CS AROM Supine Exercise Name On occipital float Reps/Minutes 2 min Comments VC for slow in pain free range Sidelying Exercises Open book Reps/Minutes X 10 Comments VC cues at LE's for positioning Sitting Exercises UT stretch Side bilateral Reps/Minutes 1 min each side pre and post manual Comments reports sensation on L when attempting to stretch R Standing Exercises isometric reactive row Standing Exercise HEP Name Side bilateral Resistance level 3 band Reps/Minutes X 15 Comments verbal and visual cues Manual Therapy Treatment Consent Patient gave verbal Yes consent for manual treatment Soft Tissue Mobilization thoracic paraspinals Body Location also thoracic paraspinals Mobilization Type Cross-Friction,Sustained Pressure Intensity/Depth Moderate Body Position Sidelying Physical Therapy Assessment Goals 5 Impairment Pain intensity Short Term Goal (STG Patient will report a 20% improvement in pain intensity ) in his thoracic region. STG Duration 3 weeks Intermediate Goal (LTG) Patient will report a 20% improvement in pain intensity in his thoracic region. LTG Duration 6 weeks 4 Impairment General function Short Term Goal (STG Patient will report a GROC of 25% for his presentation ) concerning his thoracic pain. STG Duration 3 weeks Kier Boiler Goal (LTG) Patient will report a GROC of 50% for his presentation concerning his thoracic pain. LTG Duration 6 weeks 3 Impairment B shoulder strength Kier Boiler Goal (LTG) Pt will improve B shoulder strength to at least 4+/5 in all muscle groups in order to improve function. 07/03: MET LTG Duration 12 weeks MET 2 Impairment Shoulder AROM Impairment Eval: L shoulder flex 85, abd 128 R shoulder 145, abd 143 Intermediate Goal (LTG) Pt will improve L shoulder AROM flex and abd to at least 145 degrees without pain to improve function. 07/03: Progressing, L shoulder flex 125, L shoulder abd 132 degrees 08/03/2025 no change in AROM L shoulder LTG Duration 12 weeks 1 Impairment Cervical AROM Impairment Eval: lateral flexion L 35, R 30 Kier Boiler Goal (LTG) Pt will improve B cervical lateral flexion to 45 degrees in order to improve pain and function. 07/03: Progressing, cervical lateral flex L 40, R 33 degrees 08/03/2025 L 43 L 40 improved but goal not yet met LTG Duration 12 weeks Assessment Summary Assessment Pt reports feeling looser but his head wants to move forward when he tries to sidebend Physical Therapy Plan Frequency and Duration Frequency of 1-2x/wk Treatment Duration of 12 treatment (weeks) Plan of Care Start 06/05/25 Date Plan of Care End 11/26/25 Date Therapeutic Interventions Therapeutic Home Exercise Program,Joint Mobilizations,Manual Interventions Therapy,Neuromuscular Re-education,Soft Tissue Mobilization,Taping,Therapeutic Activities,Therapeutic Exercises Modalities Cold Pack/Ice Massage,Hot Packs,Iontophoresis, Ultrasound Next Visit Focus/Plan Next Note Type Treatment Note Next Visit Plan Continue focus on thoracic spine pain, working on AROM with thoracic rotation, flexion, and extension and strengthening with gross movement patterns. Possibly MWM CS
--- NOTE | 2025-09-21 10:47 | PT.OTN ---
Current Diagnoses Muscle spasm of back (09/21/25) Physical Therapy Treatment Note PT OP: Cervical/Upper Extremity Start: 07/03/25 11:05 Freq: Status: Active Protocol: Document 09/21/25 09:02 AB (Rec: 09/21/25 09:57 AB [id number]) Out-Patient Physical Therapy Visit Information Visit Information Visit Type Treatment Note Visit Note [email or web address] Access Code: [email or web address] Visit Start Time 09:04 Visit Stop Time 09:52 Visit Number 12 Number of RAIL SIGNAL MECHANIC Visits 2 Progress Note Due 10/02/25 OP-PT Subjective Patient Comments Patient Comments Patient reports he is better, but stiffness continues to be a problem. Patient rates thoracic pain is 1/10 start of session, but at night has increased stiffness. Therapeutic Exercises Supine Exercises CS AROM Supine Exercise Name On occipital float Reps/Minutes 2 min Comments VC for slow in pain free range Sidelying Exercises Open book Reps/Minutes X 10 Comments VC cues at LE's for positioning Sitting Exercises UT stretch Side bilateral Reps/Minutes 1 min each side pre and post manual Comments reports sensation on L when attempting to stretch R Standing Exercises isometric reactive row Standing Exercise HEP Name Side bilateral Resistance level 3 band Reps/Minutes X 15 Comments verbal and visual cues Manual Therapy Treatment Consent Patient gave verbal Yes consent for manual treatment Soft Tissue Mobilization thoracic paraspinals Body Location also thoracic paraspinals Mobilization Type Cross-Friction,Sustained Pressure Intensity/Depth Moderate Body Position Sidelying Physical Therapy Assessment Goals 5 Impairment Pain intensity Short Term Goal (STG Patient will report a 20% improvement in pain intensity ) in his thoracic region. STG Duration 3 weeks Halfway Goal (LTG) Patient will report a 20% improvement in pain intensity in his thoracic region. LTG Duration 6 weeks 4 Impairment General function Short Term Goal (STG Patient will report a GROC of 25% for his presentation ) concerning his thoracic pain. STG Duration 3 weeks Licensed Direct Entry Midwife Goal (LTG) Patient will report a GROC of 50% for his presentation concerning his thoracic pain. LTG Duration 6 weeks 3 Impairment B shoulder strength Licensed Direct Entry Midwife Goal (LTG) Pt will improve B shoulder strength to at least 4+/5 in all muscle groups in order to improve function. 07/03: MET LTG Duration 12 weeks MET 2 Impairment Shoulder AROM Impairment Eval: L shoulder flex 85, abd 128 R shoulder 145, abd 143 Halfway Goal (LTG) Pt will improve L shoulder AROM flex and abd to at least 145 degrees without pain to improve function. 07/03: Progressing, L shoulder flex 125, L shoulder abd 132 degrees 08/03/2025 no change in AROM L shoulder LTG Duration 12 weeks 1 Impairment Cervical AROM Impairment Eval: lateral flexion L 35, R 30 Licensed Direct Entry Midwife Goal (LTG) Pt will improve B cervical lateral flexion to 45 degrees in order to improve pain and function. 07/03: Progressing, cervical lateral flex L 40, R 33 degrees 08/03/2025 L 43 L 40 improved but goal not yet met LTG Duration 12 weeks Assessment Summary Assessment Pt reports feeling looser but his head wants to move forward when he tries to sidebend Physical Therapy Plan Frequency and Duration Frequency of 1-2x/wk Treatment Duration of 12 treatment (weeks) Plan of Care Start 06/05/25 Date Plan of Care End 11/26/25 Date Therapeutic Interventions Therapeutic Home Exercise Program,Joint Mobilizations,Manual Interventions Therapy,Neuromuscular Re-education,Soft Tissue Mobilization,Taping,Therapeutic Activities,Therapeutic Exercises Modalities Cold Pack/Ice Massage,Hot Packs,Iontophoresis, Ultrasound Next Visit Focus/Plan Next Note Type Treatment Note Next Visit Plan Continue focus on thoracic spine pain, working on AROM with thoracic rotation, flexion, and extension and strengthening with gross movement patterns. Possibly MWM CS
--- NOTE | 2025-09-25 15:49 | PT.OTN ---
Current Diagnoses Muscle spasm of back (09/25/25) Physical Therapy Treatment Note PT OP: Cervical/Upper Extremity Start: 07/03/25 11:05 Freq: Status: Active Protocol: Document 09/25/25 13:48 JZ (Rec: 09/25/25 15:48 JZ [id number]) Out-Patient Physical Therapy Visit Information Visit Information Visit Type Treatment Note Visit Note [email or web address] Access Code: [email or web address] Visit Start Time 13:48 Visit Stop Time 14:18 Visit Number 13 Number of COMMUNICATION SKILLS INSTRUCTOR Visits 0 Progress Note Due 10/02/25 OP-PT Subjective Patient Comments Patient Comments Patient reports his back has been stiff. No large changes in presentation. Therapeutic Exercises Prone Exercises Cat cow Reps/Minutes x20 Thread the needle Reps/Minutes x20 each side Sitting Exercises Stanley curl Resistance 10# Reps/Minutes 2x10 Band pull apart Reps/Minutes 3x10 seate trunk rotation Reps/Minutes x15 reps, 5 hold Seated spine rotation Side bilateral Reps/Minutes x20 each side, 5 hold Seated hip hinge Resistance 20# Reps/Minutes 2x10 Comments cues for neutral spine Standing Exercises Cable column rotations Side bilateral Resistance 20# Reps/Minutes 3x10 each direction Standing hip hinge Resistance 20# Reps/Minutes 3x10 Comments Cues for hip hinge and posterior hip translation Physical Therapy Assessment Goals 5 Impairment Pain intensity Short Term Goal (STG Patient will report a 20% improvement in pain intensity ) in his thoracic region. STG Duration 3 weeks Nursing Home Goal (LTG) Patient will report a 20% improvement in pain intensity in his thoracic region. LTG Duration 6 weeks 4 Impairment General function Short Term Goal (STG Patient will report a GROC of 25% for his presentation ) concerning his thoracic pain. STG Duration 3 weeks Pipefitter Welder Goal (LTG) Patient will report a GROC of 50% for his presentation concerning his thoracic pain. LTG Duration 6 weeks 3 Impairment B shoulder strength Pipefitter Welder Goal (LTG) Pt will improve B shoulder strength to at least 4+/5 in all muscle groups in order to improve function. 07/03: MET LTG Duration 12 weeks MET 2 Impairment Shoulder AROM Impairment Eval: L shoulder flex 85, abd 128 R shoulder 145, abd 143 Pipefitter Welder Goal (LTG) Pt will improve L shoulder AROM flex and abd to at least 145 degrees without pain to improve function. 07/03: Progressing, L shoulder flex 125, L shoulder abd 132 degrees 08/03/2025 no change in AROM L shoulder LTG Duration 12 weeks 1 Impairment Cervical AROM Impairment Eval: lateral flexion L 35, R 30 Pipefitter Welder Goal (LTG) Pt will improve B cervical lateral flexion to 45 degrees in order to improve pain and function. 07/03: Progressing, cervical lateral flex L 40, R 33 degrees 08/03/2025 L 43 L 40 improved but goal not yet met LTG Duration 12 weeks Assessment Summary Assessment Treatment focused on lumbar and thoracic mobility and strengthening. Patient tolerated treatment well with no increases in pain levels. Plan next session to complete progress note and discuss plan of care moving forward. Physical Therapy Plan Frequency and Duration Frequency of 1-2x/wk Treatment Duration of 12 treatment (weeks) Plan of Care Start 06/05/25 Date Plan of Care End 11/26/25 Date Next Visit Focus/Plan Next Note Type Treatment Note Next Visit Plan Continue focus on thoracic spine pain, working on AROM with thoracic rotation, flexion, and extension and strengthening with gross movement patterns.
--- NOTE | 2025-10-01 09:52 | PT.OPDS ---
Current Diagnoses Muscle spasm of back (10/01/25) Visit Care Team Role Provider Type Marisa Hermosillo MD Attending Provider Physician Family Provider Primary Care Provider Referring Provider Specialty: Family Practice BIOLOGY ADJUNCT INSTRUCTOR Address: [address] [place], [address] Email: [email or web address] Visit Number Visit Number 14 Discharge Summary PT OP: Cervical/Upper Extremity Start: 07/03/25 11:05 Freq: Status: Active Protocol: Document 10/01/25 07:29 JZ (Rec: 10/01/25 09:51 JZ [id number]) Out-Patient Physical Therapy Visit Information Visit Information Visit Type Progress Note Visit Note [email or web address]/ Access Code: [email or web address] Visit Start Time 09:00 Visit Stop Time 09:45 Visit Number 14 Number of EXTENSION FORESTER Visits 0 Progress Note Due 10/31/25 OP-PT Subjective Patient Comments Patient Comments Patient reports he thinks his back is doing much better . He does have a knee replacement upcoming although it is not scheduled. He reports that his GROC is 85%. He reports improvement with the back spasm frequency. He reports the remaining 15% is made up of remaining stiffness. Patient Questionnaires Oswestry Low Back Index Oswestry Score 3 Oswestry Impairment 1 to 19% Impaired (Score 1-19) Therapeutic Exercises Supine Exercises Supine thoracic extension over half foam roll Reps/Minutes x15, 5 hold Prone Exercises Cat cow Reps/Minutes x20 Sitting Exercises Stanley curl Resistance 10# Reps/Minutes 2x10 Band pull apart Resistance green level 3 band Reps/Minutes 3x10 Standing Exercises Cable column rotations Side bilateral Resistance 10# Reps/Minutes x15 each direction Physical Therapy Assessment Goals 5 Impairment Pain intensity Short Term Goal (STG Patient will report a 20% improvement in pain intensity ) in his thoracic region. 10/01/25 - Met STG Duration 3 weeks Jail Goal (LTG) Patient will report a 40% improvement in pain intensity in his thoracic region. 10/01/25 - Met LTG Duration 6 weeks 4 Impairment General function Short Term Goal (STG Patient will report a GROC of 25% for his presentation ) concerning his thoracic pain. 10/01/25 - Met STG Duration 3 weeks Cost Clerk Goal (LTG) Patient will report a GROC of 50% for his presentation concerning his thoracic pain. 10/01/25 - Met LTG Duration 6 weeks 3 Impairment B shoulder strength Jail Goal (LTG) Pt will improve B shoulder strength to at least 4+/5 in all muscle groups in order to improve function. 07/03: MET LTG Duration 12 weeks MET 2 Impairment Shoulder AROM Impairment Eval: L shoulder flex 85, abd 128 R shoulder 145, abd 143 Jail Goal (LTG) Pt will improve L shoulder AROM flex and abd to at least 145 degrees without pain to improve function. 07/03: Progressing, L shoulder flex 125, L shoulder abd 132 degrees 08/03/2025 no change in AROM L shoulder LTG Duration 12 weeks 1 Impairment Cervical AROM Impairment Eval: lateral flexion L 35, R 30 Jail Goal (LTG) Pt will improve B cervical lateral flexion to 45 degrees in order to improve pain and function. 07/03: Progressing, cervical lateral flex L 40, R 33 degrees 08/03/2025 L 43 L 40 improved but goal not yet met LTG Duration 12 weeks Assessment Summary Assessment Patient presenting to PT after 13 visits for thoracic back pain. Patient has made improvement with pain frequency and intensity. Further investigation revealed improvement in general function (see Inna, GROC). Because of improvement noted above, and patient confidence continuing home program independently, today will be his last formal PT session. Plan of care will be discharged. Physical Therapy Plan Frequency and Duration Frequency of 1-2x/wk Treatment Duration of 12 treatment (weeks) Plan of Care Start 06/05/25 Date Plan of Care End 11/26/25 Date Next Visit Focus/Plan Next Visit Plan N/A - discharged on this date.
== END 2025-10-01 13:10 | disposition home or self-care (01) ==
LOC: PHYS 09:00
PROVIDERS: Family Provider Family Medicine; PCP Family Medicine; Referring Provider Family Medicine; Visit Provider Family Medicine
DX: M62.830 Muscle spasm of back (principal)
CPT/HCPCS: 97110; 97140; 97162